=== PATIENT | male | born 1995 | race Caucasian/White ===

== ENCOUNTER 2020-11-13 10:44 | Emergency (ER) | payer BC, SELFPAY ==
[2020-11-13 10:51] VITALS: BP 116/69; PULSE 89; RESP 18; TEMP 36.4; O2SAT 99; BMI 21.5
--- NOTE | 2020-11-13 11:04 | CT_ITS ---
WS: [id number] CT scan of the abdomen and pelvis with IV contrast. Additional two-dimensional coronal and sagittal reconstruction was performed. 11/13/2020 Clinical Data: RLQ pains since last night, abd pain diffuse x 2 months Comparison: None. DLP: 388.[address] scans at [facility] use at least one of these dose optimization techniques: automat ed exposure control; mA and/or kV adjustment per patient size (includes targeted exams where dose is matched to clinical indication); or iterative reconstruction. Findings: The lower lungs show no nodules, masses or effusions. The liver, gallbladder, spleen, adrenal glands and pancreas are normal. The kidneys show equal bilateral contrast excretion with no cyst or masses. No renal calculi or urete ral calculi are seen. The abdominal aorta is normal in size. No appendicitis or diverticulitis is seen. The stomach, small bowel and colon demonstrate only fecal material in the colon. There is a calcification in the micki ascending colon which may represent ingest ed material. No abscess, adenopathy, ascites, mass, obstruction or free air is seen. The bladder is unremarkable. No inguinal hernia is seen. The bones of the lower thorax, lumbar spine, pelvis, and hips are normal. CT/CT abdomen pelvis w con* [id number] Impression: 1. Negative for acute intra-abdominal or pelvic abnormality. 2. Negative for appendicitis or acute right lower quadrant abnormality.
--- NOTE | 2020-11-13 11:06 | W.ED.ABDPA2 ---
HPI - Abdominal Pain General: Chief Complaint: Abdominal Pain Stated Complaint: AB PAIN Time Seen by Provider: 11/13/20 11:00 History of Present Illness: HPI narrative: Patient complains of a 2-month history abdominal pains. Also 2 visits to ERs without any work-up being done they state. Patient says right lower quadrant pain started last night and he cannot bear that anymore. Has had a history of vomiting he says 5 minutes after meals for the last 2 months. Said he has had significant weight loss. Denies any significant past medical history. Does work full-time. Denies any illicit drug use. MD elicited complaint: abdominal pain Onset (ago): hour(s) (Right lower quadrant pain since last night diffuse abdominal pain x2 months) Pain Consistency: constant Location: Diffuse and RLQ Severity: moderate Quality: cramping and aching Exacerbating factors: eating Relieving factors: nothing Associated Symptoms: Reports GI cramping and vomiting; Denies change in stool character, chills and fever(s) Review of Systems Const: Denies: fever(s), chills or body aches Eyes: Denies: change in vision or blurry vision ENMT: Denies: throat pain or nasal congestion Card: Denies: chest pain or dyspnea on exertion Resp: Denies: dyspnea, productive cough or non-productive cough GI: Reports: abdominal pain (Diffuse abdominal pain x2 months with vomiting 5 minutes after meals. Rlq), vomiting, GI cramping and other (Right lower quadrant pain since last night.); Denies: early satiety or change in stool character : Denies: difficulty urinating Musc: Denies: extremity pain Skin/Breast: Denies: rash Neuro: Denies: headache(s) Psych: Denies: anxiety or depression Eamon/Lymph: Denies: easy bruising Physical Exam Const: COMMON NORMALS: no acute distress, average body habitus and patient oriented x3 HENMT: COMMON NORMALS: normocephalic HEAD & SCALP: normal to inspection and normocephalic FACE & SINUS: normal facial exam Eye: COMMON NORMALS: conjunctivae normal GENERAL EYE: appearance normal, both eyes and all related structures CONJUNCTIVA: Yes conjunctivae normal Neck/C-Spine: COMMON NORMALS: no JVD Chest: COMMONS NORMALS: normal inspection of the chest Resp: COMMON NORMALS: normal respiratory effort and clear to auscultation bilaterally AUSCULTATION: clear to auscultation bilaterally Cardio: COMMON NORMALS: no JVD, regular rate and regular rhythm RATE: regular rate RHYTHM: regular rhythm GI: COMMON NORMALS: Normal to inspection, nondistended, normoactive bowel sounds present PALPATION: Yes Tenderness to palpation present (GI) Details: RLQ Extremity: COMMON NORMALS: normal to inspection and full ROM Neuro: COMMON NORMALS: patient oriented x3 Course Vital Signs: Vital signs: Vital Signs Temperature 97.5 F L 11/13/20 10:51 Pulse Rate 89 11/13/20 10:51 Respiratory Rate 18 11/13/20 10:51 Blood Pressure 116/69 11/13/20 10:51 Pulse Oximetry 99 11/13/20 10:51 MDM - Abdominal Pain MDM Narrative: Medical decision making narrative: Discussed labs radiology results with patient patient started taking Prilosec and Tagamet yesterday denies no improvement no explained to him would take longer for that that they need take it for minimally 2 to 8 weeks. Need establish primary care provider. Differential also include ulcer or gastritis. Differential Diagnosis: Differential diagnosis abdominal pain: Likely abdominal pain, constipation and gastroenteritis Lab Data: Labs: Lab Results 11/13/20 11/13/20 11/13/20 Range/Units 11:30 11:30 11:30 WBC 4.9 (4.0-10.0) 10^3/ uL RBC 4.79 (4.1-5.3) 10^6/u L Hgb 14.8 (11.7-16.6) g/dL Hct 43.8 (42.0-52.0) % MCV 91.4 (80-94) fL MCH 30.9 (28.0-34.0) pg MCHC 33.8 (30.0-36.0) g/dL RDW 12.0 L (12.1-15.1) % Plt Count 260 (130-400) 10^3/c mm MPV 9.4 (7.4-10.4) fL Neut % (Auto) 51.3 % Lymph % (Auto) 35.1 % Kingman % (Auto) 6.8 % Eos % (Auto) 6.0 % Baso % (Auto) 0.6 % Neut # (Auto) 2.50 (1.8-7.7) 10^3/u L Lymph # (Auto) 1.7 (0.8-4.8) 10^3/u L Kingman # (Auto) 0.3 (0.2-0.9) 10^3/u L Eos # (Auto) 0.3 (0.0-0.8) 10^3/u L Baso # (Auto) 0.0 (0.0-0.1) 10^3/u L Nucleated RBC % (a uto) 0 % Nucleated RBCs # 0.0 /100WBC Sodium 141 (136-145) mmol/L Potassium 3.8 (3.5-5.1) mmol/L Chloride 104 (98-107) mmol/L Carbon Dioxide 29 (22-29) mmol/L Anion Gap 11.8 (5-19) BUN 8 (6-20) mg/dL Creatinine 0.9 (0.7-1.2) mg/dL GFR Calculation 103.7 (90-130) mL/min Glucose 72 (65-115) mg/dL Calculated Osmolal ity 289 (285-295) mOsm/k g Lactate 2.0 (0.5-2.2) mmol/L Calcium 9.4 (8.5-10.5) mg/dL Total Bilirubin 0.3 (0.15-1.2) mg/dL AST 17 (0-40) U/L ALT 15 (0-41) U/L Alkaline Phosphata se 86 (40-130) IU/L Total Protein 7.1 (6.6-8.7) g/dL Albumin 4.2 (3.5-5.2) g/dL Globulin 2.9 (1.3-4.6) g/dL Lipase 51 (13-60) U/L Urine Color (Yellow) Urine Appearance (CLEAR) Urine pH (5-7) Ur Specific Gravit y (1.005-1.030) Urine Protein (Negative) Urine Glucose (UA) (Normal) Urine Ketones (Negative) Urine Blood (Negative) Urine Nitrate (Negative) Urine Bilirubin (Negative) Urine Urobilinogen (Negative) mg/dL Ur Leukocyte Natasha ase (Negative) Hepatitis A IgM Ab (Nonreactive) Hep Bs Antigen (Nonreactive) Hep B Core IgM Ab (Nonreactive) Hepatitis C Antibo dy (Nonreactive) 11/13/20 11/13/20 Range/Units 11:30 12:05 WBC (4.0-10.0) 10^3/ uL RBC (4.1-5.3) 10^6/u L Hgb (11.7-16.6) g/dL Hct (42.0-52.0) % MCV (80-94) fL MCH (28.0-34.0) pg MCHC (30.0-36.0) g/dL RDW (12.1-15.1) % Plt Count (130-400) 10^3/c mm MPV (7.4-10.4) fL Neut % (Auto) % Lymph % (Auto) % Kingman % (Auto) % Eos % (Auto) % Baso % (Auto) % Neut # (Auto) (1.8-7.7) 10^3/u L Lymph # (Auto) (0.8-4.8) 10^3/u L Kingman # (Auto) (0.2-0.9) 10^3/u L Eos # (Auto) (0.0-0.8) 10^3/u L Baso # (Auto) (0.0-0.1) 10^3/u L Nucleated RBC % (a uto) % Nucleated RBCs # /100WBC Sodium (136-145) mmol/L Potassium (3.5-5.1) mmol/L Chloride (98-107) mmol/L Carbon Dioxide (22-29) mmol/L Anion Gap (5-19) BUN (6-20) mg/dL Creatinine (0.7-1.2) mg/dL GFR Calculation (90-130) mL/min Glucose (65-115) mg/dL Calculated Osmolal ity (285-295) mOsm/k g Lactate (0.5-2.2) mmol/L Calcium (8.5-10.5) mg/dL Total Bilirubin (0.15-1.2) mg/dL AST (0-40) U/L ALT (0-41) U/L Alkaline Phosphata se (40-130) IU/L Total Protein (6.6-8.7) g/dL Albumin (3.5-5.2) g/dL Globulin (1.3-4.6) g/dL Lipase (13-60) U/L Urine Color Yellow (Yellow) Urine Appearance Clear (CLEAR) Urine pH 5 (5-7) Ur Specific Gravit y 1.025 (1.005-1.030) Urine Protein Neg (Negative) Urine Glucose (UA) Norm (Normal) Urine Ketones Negative (Negative) Urine Blood Neg (Negative) Urine Nitrate Negative (Negative) Urine Bilirubin Neg (Negative) Urine Urobilinogen Norm (Negative) mg/dL Ur Leukocyte Natasha ase Negative (Negative) Hepatitis A IgM Ab Non-reactive (Nonreactive) Hep Bs Antigen Non-reactive (Nonreactive) Hep B Core IgM Ab Non-reactive (Nonreactive) Hepatitis C Antibo dy Non-reactive (Nonreactive) Discharge Plan Discharge Patient Disposition: Home Clinical Impression: Abdominal pain in male Condition: Stable Discharge Orders: Discharge ED (Routine); Ordered 11/13/20 Ordered By: Kahlil Jamison Discharge Diet: Advance as tolerated and As Directed Discharge Activity: Resume usual activity Patient Instructions: Abdominal Pain (ED) Activity Restrictions/Additional Instructions: Can take [id number] omeprazole and Tagamet or similar medicine. Make sure to use a low-fat low greasy diet. Make an appointment to follow-up with primary care provider and establish. Can return the ER or see primary care provider if symptoms do not improve. Take [id number] medicine for least minimum 2 weeks to see if you get good benefit from it. 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
[2020-11-13] MEDS: iohexol 300 mg/mL 100 mL Btl IV (11:39)
[2020-11-13 11:42] LABS: Basophils % 0.6 %; Eosinophils # 0.3 10^3/uL (0.0-0.8); Hematocrit 43.8 % (42.0-52.0); Hemoglobin 14.8 g/dL (11.7-16.6); Lymphocytes # 1.7 10^3/uL (0.8-4.8); Lymphocytes % 35.1 %; Mean Corpuscular HGB Conc 33.8 g/dL (30.0-36.0); Mean Corpuscular Hemoglobin 30.9 pg (28.0-34.0); Mean Corpuscular Volume 91.4 fL (80-94); Mean Platelet Volume 9.4 fL (7.4-10.4); Monocytes # 0.3 10^3/uL (0.2-0.9); Monocytes % 6.8 %; Neutrophils % 51.3 %; Nucleated Red Blood Cells % 0 %; Platelet Count 260 10^3/cmm (130-400); Red Blood Count 4.79 10^6/uL (4.1-5.3); White Blood Count 4.9 10^3/uL (4.0-10.0)
[2020-11-13 12:11] LABS: Alanine Aminotransferase 15 U/L (0-41); Albumin Level 4.2 g/dL (3.5-5.2); Alkaline Phosphatase 86 IU/L (40-130); Anion Gap 11.8 (5-19); Aspartate Amino Transferase 17 U/L (0-40); Blood Urea Nitrogen 8 mg/dL (6-20); Calcium 9.4 mg/dL (8.5-10.5); Carbon Dioxide 29 mmol/L (22-29); Chloride 104 mmol/L (98-107); Globulin 2.9 g/dL (1.3-4.6); Glomerular Filtration Rate 103.7 mL/min (90-130); Glucose 72 mg/dL (65-115); Lipase 51 U/L (13-60); Osmolality Calculated 289 mOsm/kg (285-295); Potassium 3.8 mmol/L (3.5-5.1); Sodium 141 mmol/L (136-145); Total Bilirubin 0.3 mg/dL (0.15-1.2); Total Protein 7.1 g/dL (6.6-8.7)
[2020-11-13] MEDS: sodium chloride 0.9% 1,000 ML 999 ML IV (12:12)
[2020-11-13 12:23] LABS: Hepatitis A Antibody IgM Non-Reactive (Nonreactive); Hepatitis B Core IgM Non-Reactive (Nonreactive); Hepatitis B Surface Antigen Non-Reactive (Nonreactive); Hepatitis C Virus Antibody Non-Reactive (Nonreactive)
[2020-11-13 12:53] LABS: Add Urine Microscopic? NO
[2020-11-13 12:58] LABS: Bilirubin Urine Neg (Negative); Blood Urine Neg (Negative); Glucose Urine UA Norm (Normal); Ketones Urine Negative (Negative); Leukocyte Esterase Urine Negative (Negative); Nitrate Urine Negative (Negative); Protein Urine Neg (Negative); Specific Gravity, Urine 1.025 (1.005-1.030); Urine Appearance Clear (CLEAR); Urine Color Yellow (Yellow); Urobilinogen Urine Norm (Negative); pH Urine 5 (5-7)
[2020-11-13 13:18] VITALS: BP 103/55; PULSE 76; RESP 17; O2SAT 99
== END 2020-11-13 13:19 | disposition home or self-care (01) ==
PROVIDERS: Emergency Provider Nurse Practitioner Family
DX: R10.9 Unspecified abdominal pain (principal)
CPT/HCPCS: 74177; 80053; 80074; 81003; 83605; 83690; 85025; 96360; 99283; J7030; Q9967

== ENCOUNTER 2025-03-17 17:29 | Emergency (ER) | payer SELFPAY ==
[2025-03-17 17:38] VITALS: BP 100/61; PULSE 82; RESP 17; TEMP 36.7; O2SAT 100; BMI 25.1
--- NOTE | 2025-03-17 17:44 | CTR_ITS ---
PROCEDURE INFORMATION: Exam: CT Cervical Spine Without Contrast Exam date and time: 03/17/2025 6:20 PM Age: 29 years old Clinical indication: Injury or trauma; Other: Kicked by donkey; Blunt trauma; Additional info: Fall, injury TECHNIQUE: Imaging protocol: Computed tomography of the cervical spine without contrast. Radiation optimization: All CT scans at this facility use at least one of these dose optimization techniques: automated exposure control; mA and/or kV adjustment per patient size (includes targeted exams where dose is matched to clinical indication); or iterative reconstruction. COMPARISON: CT head wo con* [id number] 03/17/2025 6:20 PM RADIATION DOSE METRICS: Total DLP (mGy-cm): 221.1 FINDINGS: Bones: No acute fracture. Normal alignment. No significant disc bulge or herniation. No severe spinal canal stenosis. No significant neural foraminal narrowing. Lungs: Lung apices are normal. Soft tissues: Unremarkable. CT/CT cervical spin wo con* [id number] IMPRESSION: No acute cervical spine fracture.
--- NOTE | 2025-03-17 17:44 | CTR_ITS ---
PROCEDURE INFORMATION: Exam: CT Head Without Contrast Exam date and time: 03/17/2025 6:20 PM Age: 29 years old Clinical indication: Injury or trauma; Other: Kicked by donkey; Blunt trauma (contusions or hematomas); Without loss of consciousness; Additional info: Fall after kicked by donkey with blurry vision TECHNIQUE: Imaging protocol: Computed tomography of the head without contrast. Radiation optimization: All CT scans at this facility use at least one of these dose optimization techniques: automated exposure control; mA and/or kV adjustment per patient size (includes targeted exams where dose is matched to clinical indication); or iterative reconstruction. COMPARISON: CT cervical spin wo con* [id number] 03/17/2025 6:20 PM RADIATION DOSE METRICS: Total DLP (mGy-cm): 865.7 FINDINGS: Brain: Normal. No hemorrhage. Unremarkable white matter. No mass effect or acute infarct. Cerebral ventricles: No ventriculomegaly. No midline shift. Paranasal sinuses: Visualized sinuses are unremarkable. No fluid levels. Mastoid air cells: Visualized mastoid air cells are well aerated. Bones: Unremarkable. No acute fracture. Soft tissues: Unremarkable. CT/CT head wo con* [id number] IMPRESSION: No acute intracranial abnormality.
--- NOTE | 2025-03-17 18:13 | W.ED.HEATRA ---
HPI - Head Injury General: Chief complaint: Head Injury Stated complaint: kicked in head by a donkey Time Seen by Provider: 03/17/25 17:43 History of Present Illness: Patient is a 29-year-old male without medical issues that reported to ED after being kicked in the head by a donkey. Patient had contact along the right lateral eyebrow. He placed glue in his eyebrow himself. He states he is days, and has blurry vision, however no LOC. He fell back on gravel. He continues to have blurry vision. He had nausea and vomiting x 1. Associated symptoms: Deny nausea, neck pain or vomiting Related Data Home Medications ?Medication ?Instructions ?Recorded ?Confirmed famotidine 20 mg tablet 20 mg PO DAILY 11/13/20 11/13/20 omeprazole 20 mg capsule,delayed 20 mg PO DAILY 11/13/20 11/13/20 release Allergies Allergy/AdvReac Type Severity Reaction Status Date / Time Sulfa (Sulfonamide Allergy ALGY-Swell Verified 11/13/20 13:12 Antibiotics) Lip/Tongue/Throat Review of Systems General: Reports: 10 or more systems reviewed and unremarkable except in HPI and below Const: Denies: fever(s) or chills Card: Denies: chest pain or palpitations Resp: Denies: dyspnea or productive cough GI: Denies: abdominal pain, nausea or vomiting : Denies: flank pain or difficulty urinating Musc: Denies: neck pain, back pain, extremity pain, joint pain or joint swelling Skin/Breast: Denies: rash or pruritus Neuro: Reports: headache(s); Denies: numbness in extremities or sensory changes Psych: Denies: anxiety or depression Physical Exam Const: COMMON NORMALS: patient oriented x3 and alert ORIENTATION/CONSCIOUSNESS: Yes oriented to person, Yes oriented to place and Yes oriented to time HENMT: COMMON NORMALS: normocephalic, atraumatic, hearing grossly normal bilaterally and TM's normal bilaterally (no blood) HEAD & SCALP: normocephalic and atraumatic FACE & SINUS: laceration (as noted on picture, 2.5 cm); no edema FACE & SINUS IMAGES:  1. laceration-with superglue from home TYMPANIC MEMBRANE: TM's normal bilaterally (no blood) MOUTH: Normal oral and palatal mucosa present, lip normal and tongue normal THROAT: posterior oropharynx normal and tonsils normal Lymph: LYMPHATIC: no lymphadenopathy noted Chest: COMMONS NORMALS: normal inspection of the chest and normal palpation of entire chest wall Resp: COMMON NORMALS: normal respiratory effort and clear to auscultation bilaterally AUSCULTATION: clear to auscultation bilaterally Cardio: COMMON NORMALS: regular rate and regular rhythm RATE: regular rate RHYTHM: regular rhythm GI: COMMON NORMALS: Normal to inspection, nondistended, normoactive bowel sounds present and Soft to palpation INSPECTION: Yes normal to inspection PALPATION: Yes Soft to palpation : COMMON NORMALS: Yes no CVA tenderness BLADDER/KIDNEY EXAM: Yes no CVA tenderness Back/Pelvis: COMMON NORMALS: no CVA tenderness Extremity: COMMON NORMALS: normal to inspection, full ROM and capillary refill normal Neuro: COMMON NORMALS: patient oriented x3 and CN's II-XII intact bilaterally SENSORIUM/ORIENTATION: Yes alert, Yes oriented to person, Yes oriented to place, Yes oriented to time and Yes other (appears dazed) CRANIAL NERVES: Yes CN normal except as noted COORDINATION/BALANCE: [id number] test normal SPEECH: speech normal GAIT: Yes Normal gait present MOTOR EXAM: 5/5 motor strength present throughout COORDINATION: [id number] test normal PUPIL EXAM: Sluggish: right Psych: COMMON NORMALS: mental status grossly normal, Normal thought process present and cooperative THOUGHT PROCESS: Normal thought process present Course Vital Signs: Vital signs: Vital Signs Temperature 98.1 F 03/17/25 17:38 Pulse Rate 82 03/17/25 17:38 Respiratory Rate 17 03/17/25 17:38 Blood Pressure 100/61 03/17/25 17:38 Pulse Oximetry 100 03/17/25 17:38 Oxygen Delivery Me thod Room Air 03/17/25 17:38 MDM - Head Injury Medcial Decision Making Patient is a 29-year-old male with kick from donkey to head. Prior to arrival he glued his own laceration which is approximated well. He appears dazed at bedside, and has sluggish reactive to pupil on the right. He complains of blurry vision. He has had nausea and vomiting x 1 prior to arrival. This occurred today just 2 hours prior to arrival. Given these concerns, patient should have a CT of his head and neck. He does not have midline tenderness to his neck, however did fall back onto gravel and had significant kick in the head. Further decision making as per CT CT is negative for acute bleed. No fracture on CT of the neck. Discussed with patient to stay away from high-impact activities, sports, and protect his head. 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 Gave concussion precautions. Patient states understanding. Mom at bedside with patient. Lab Data Radiology Impressions Cervical Spine CT 03/17/25 17:44 IMPRESSION: No acute cervical spine fracture. Head CT 03/17/25 17:44 IMPRESSION: No acute intracranial abnormality. All radiology interpretation(s) finalized by discharge ED provider radiology interpretation(s): No acute findings Discharge Plan Discharge Patient Disposition: Home Clinical Impression: Closed head injury Qualifiers: Encounter type: initial encounter Qualified Code(s): S09.90XA - Unspecified injury of head, initial encounter Concussion without loss of consciousness Qualifiers: Encounter type: initial encounter Qualified Code(s): S06.0X0A - Concussion without loss of consciousness, initial encounter Condition: Stable Prescriptions: No Action famotidine 20 mg Tablet 20 mg PO DAILY omeprazole 20 mg Capsule,Delayed Release(Dr/Ec) 20 mg PO DAILY Discharge Orders: Discharge ED (Routine); Ordered 03/17/25 Ordered By: Perla Subramanian Discharge Diet: Usual diet Discharge Activity: Limit activity as instructed Patient Instructions: Concussion (ED) Activity Restrictions/Additional Instructions: As we discussed, stay away from high-impact activities. Protect your head if needed with a helmet. 2-4 weeks is suggested. Follow concussion protocol. Return to ED for worsening symptoms, ongoing nausea and vomiting. 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
== END 2025-03-17 19:16 | disposition home or self-care (01) ==
PROVIDERS: Emergency Provider Physician Assistant
DX: S06.0X0A Concussion without loss of consciousness, initial encounter (principal); W55.32XA Struck by other hoof stock, initial encounter
CPT/HCPCS: 70450; 72125; 99284